=== PATIENT | male | born 1945 | race Caucasian/White ===

== ENCOUNTER 2022-11-08 09:06 | Inpatient (IN) | payer MEDICARE, MEDICAID ==
[2022-11-08] MEDS: Sodium Chloride 0.9% 10 ML Syringe FLUSH PRN ×2 (09:25→12:40)
[2022-11-08 10:06] LABS: ESTIMATED GFR 49 mL/min (>60)
[2022-11-08 10:06] LABS: BASE EXCESS VENOUS,POC -2 mmol/L (-2 - 3+); PCO2 VENOUS,POC 25 mmHg (41-51); PH VENOUS,POC 7.51 pH Units (7.32-7.43)
[2022-11-08] MEDS ORDERED: Sodium Chloride 0.9% 1,000 ML IV ONE ×2 (10:17→11:26)
[2022-11-08] MEDS ORDERED: Acetaminophen 500 MG Tab PO ONE (11:26)
[2022-11-08] MEDS ORDERED: cefTRIAXone 2 GM Vial IVPUSH ONE (11:54)
[2022-11-08] MEDS ORDERED: Ondansetron 4 MG/2 ML SDV IV PRN (14:07)
[2022-11-08] MEDS ORDERED: Ibuprofen 400 MG Tab PO PRN (14:07)
[2022-11-08] MEDS ORDERED: Magnesium Hydroxide 400 MG/5 ML Susp 30 ML Cup PO PRN (15:13)
[2022-11-08] MEDS ORDERED: Bisacodyl 10 MG Supp RECTAL PRN (15:13)
[2022-11-08] MEDS ORDERED: Polyethylene Glycol 3350 Powder 17 GM Packet PO PRN (15:13)
[2022-11-08] MEDS ORDERED: guaiFENesin 100 MG/5 ML Soln 5 ML UD Cup PO PRN (15:13)
[2022-11-08] MEDS ORDERED: Loperamide 2 MG Cap PO PRN (15:13)
[2022-11-08] MEDS ORDERED: Aluminum Hydroxide/Magnesium Hydroxide Susp 30 ML Cup PO PRN (15:25)
[2022-11-08] MEDS ORDERED: Nicotine Polacrilex 2 MG Gum BUCCAL PRN (15:27)
[2022-11-08] MEDS: Enoxaparin 40 MG/0.4 ML Syringe SUBCUT SCH (16:58)
[2022-11-08] MEDS: Acetaminophen 325 MG Tab PO PRN (18:21)
[2022-11-08] MEDS: Sodium Chloride 0.9% 1,000 ML IV SCH (18:22)
[2022-11-08] MEDS ORDERED: CLOZAPINE 100MG TABLET PO SCH (21:00)
[2022-11-08] MEDS ORDERED: CLOZAPINE 25 MG PO SCH ×2 (21:00)
[2022-11-08] MEDS ORDERED: CLOZAPINE 100 MG PO SCH (21:00)
[2022-11-08] MEDS: Melatonin 3 MG Tab PO SCH (21:04)
[2022-11-08] MEDS: Lactulose Soln 10 GM/15 ML 30 ML UD Cup PO SCH (21:04)
[2022-11-08] MEDS: Divalproex Sodium 250 MG Tab.ER PO SCH (21:04)
[2022-11-08] MEDS: Acetaminophen 325 MG Tab PO SCH (21:04)
[2022-11-08] MEDS: Tamsulosin 0.4 MG Cap.ER PO SCH (21:05)
[2022-11-09] MEDS: Acetaminophen 325 MG Tab PO PRN (01:00)
[2022-11-09] MEDS: Sodium Chloride 0.9% 1,000 ML IV SCH (04:30)
[2022-11-09 06:31] LABS: ESTIMATED GFR 49 mL/min (>60)
[2022-11-09] MEDS: Levothyroxine 50 MCG Tab PO SCH (06:33)
[2022-11-09] MEDS: CLOZAPINE 25 MG PO SCH ×2 (09:49→20:50)
[2022-11-09] MEDS: CLOZAPINE 100 MG PO SCH ×2 (09:49→20:50)
[2022-11-09] MEDS: Polyethylene Glycol 3350 Powder 17 GM Packet PO SCH (09:50)
[2022-11-09] MEDS: Multivitamins with Iron/Calcium/Folic Acid/Minerals Tab PO SCH (09:50)
[2022-11-09] MEDS: Cholecalciferol (Vitamin D3) 25 MCG Tab PO SCH (09:50)
[2022-11-09] MEDS: Acetaminophen 325 MG Tab PO SCH ×2 (09:50→20:51)
[2022-11-09] MEDS: Lactulose Soln 10 GM/15 ML 30 ML UD Cup PO SCH ×3 (09:50→20:47)
[2022-11-09] MEDS: Ascorbic Acid 500 MG Tab PO SCH (09:50)
[2022-11-09] MEDS: Sodium Chloride 0.9% 10 ML Syringe FLUSH PRN (11:56)
[2022-11-09] MEDS: cefTRIAXone 1 GM Vial IVPUSH SCH (11:57)
[2022-11-09] MEDS: Lactated Ringers 1,000 ML IV SCH ×2 (13:53→23:37)
[2022-11-09] MEDS: Enoxaparin 40 MG/0.4 ML Syringe SUBCUT SCH ×2 (16:13→16:32)
[2022-11-09] MEDS: Divalproex Sodium 250 MG Tab.ER PO SCH (20:48)
[2022-11-09] MEDS: Melatonin 3 MG Tab PO SCH (20:48)
[2022-11-09] MEDS: Tamsulosin 0.4 MG Cap.ER PO SCH (20:49)
[2022-11-10] MEDS: Levothyroxine 50 MCG Tab PO SCH (06:34)
[2022-11-10 06:49] LABS: ESTIMATED GFR 58 mL/min (>60)
[2022-11-10] MEDS: Lactulose Soln 10 GM/15 ML 30 ML UD Cup PO SCH ×3 (08:17→20:28)
[2022-11-10] MEDS: Polyethylene Glycol 3350 Powder 17 GM Packet PO SCH (08:17)
[2022-11-10] MEDS: Ascorbic Acid 500 MG Tab PO SCH (08:18)
[2022-11-10] MEDS: Multivitamins with Iron/Calcium/Folic Acid/Minerals Tab PO SCH (08:18)
[2022-11-10] MEDS: Cholecalciferol (Vitamin D3) 25 MCG Tab PO SCH (08:20)
[2022-11-10] MEDS: Acetaminophen 325 MG Tab PO SCH ×2 (08:21→20:30)
[2022-11-10] MEDS: Lactated Ringers 1,000 ML IV SCH ×2 (09:45→20:18)
[2022-11-10] MEDS: cefTRIAXone 1 GM Vial IVPUSH SCH (13:13)
[2022-11-10] MEDS: Enoxaparin 40 MG/0.4 ML Syringe SUBCUT SCH (15:28)
[2022-11-10] MEDS: Divalproex Sodium 250 MG Tab.ER PO SCH (20:28)
[2022-11-10] MEDS: Tamsulosin 0.4 MG Cap.ER PO SCH (20:29)
[2022-11-10] MEDS: Melatonin 3 MG Tab PO SCH (20:29)
[2022-11-10] MEDS: CLOZAPINE 100 MG PO SCH (20:31)
[2022-11-10] MEDS: CLOZAPINE 25 MG PO SCH (20:31)
[2022-11-11] MEDS: Lactated Ringers 1,000 ML IV SCH (06:42)
[2022-11-11] MEDS: Levothyroxine 50 MCG Tab PO SCH (06:44)
[2022-11-11] MEDS: Cholecalciferol (Vitamin D3) 25 MCG Tab PO SCH (08:21)
[2022-11-11] MEDS: Ascorbic Acid 500 MG Tab PO SCH (08:21)
[2022-11-11] MEDS: Lactulose Soln 10 GM/15 ML 30 ML UD Cup PO SCH (08:21)
[2022-11-11] MEDS: Polyethylene Glycol 3350 Powder 17 GM Packet PO SCH (08:21)
[2022-11-11] MEDS: Acetaminophen 325 MG Tab PO SCH (08:21)
[2022-11-11] MEDS: Multivitamins with Iron/Calcium/Folic Acid/Minerals Tab PO SCH (08:21)
[2022-11-11] MEDS ORDERED: Cefdinir 300 MG Cap PO SCH (09:00)
== END 2022-11-11 13:25 | disposition home or self-care (01) | DRG 872 ==
LOC: FB.ED 09:06 → FB.MS 11:55
PROVIDERS: ADMIT Family Medicine; ATTEND Family Medicine
DX: A41.9 Sepsis, unspecified organism (principal); N30.01 Acute cystitis with hematuria; C34.92 Malignant neoplasm of unspecified part of left bronchus or lung; N17.9 Acute kidney failure, unspecified; C79.51 Secondary malignant neoplasm of bone; Z51.5 Encounter for palliative care; R65.20 Severe sepsis without septic shock; R29.6 Repeated falls; F25.9 Schizoaffective disorder, unspecified; F31.9 Bipolar disorder, unspecified; F17.210 Nicotine dependence, cigarettes, uncomplicated; D64.9 Anemia, unspecified; N40.0 Benign prostatic hyperplasia without lower urinary tract symptoms; K21.9 Gastro-esophageal reflux disease without esophagitis; E03.9 Hypothyroidism, unspecified; J44.9 Chronic obstructive pulmonary disease, unspecified; B96.20 Unspecified Escherichia coli [E. coli] as the cause of diseases classified elsewhere; Z20.822 Contact with and (suspected) exposure to COVID-19; E86.0 Dehydration; Z85.46 Personal history of malignant neoplasm of prostate; Z90.5 Acquired absence of kidney; Z85.828 Personal history of other malignant neoplasm of skin
CPT/HCPCS: 36415; 70450; 71045; 72125; 80048; 80053; 81001; 83605; 83735; 84484; 85025; 86140; 87040; 87077; 87086; 87088; 87186; 93005; 93010; 96361; 96374; 97161-GP; 97165-GO; 99223; 99233; 99238; 99285; 99285-25; A9270-GY; J0696; J1650; J3490; J7030; J7120; U0002